=== PATIENT | male | born 1970 | race African-American/Black ===

== ENCOUNTER 2022-04-02 18:15 | Emergency (ER) | payer MEDICAID ==
[~2022-04-02] VITALS: Ht 182.9 cm; Wt 116.6 kg
[2022-04-02 19:13] LABS: Urine Bacteria NONE SEEN /hpf (None Seen); Urine Blood Negative /uL (Negative); Urine Specific Gravity 1.036 (1.001-1.035); Urine WBC 46 /hpf (0 - 3)
[2022-04-02 19:36] LABS: Hemoglobin 13.7 g/dL (13.5-17.5); Mean Corpuscular Hgb Conc. 31.8 g/dL (32.0-36.0)
[2022-04-02 19:38] LABS: Basophils # (auto) 0.1 10 ^3/uL (0-0.2); Basophils % (auto) 1.1 % (0.0-2.0); Eosinophils # (auto) 0.2 10 ^3/uL (0-0.8); Eosinophils % (auto) 2.8 % (0.0-7.0); Hematocrit 43.2 % (41.0-53.0); Lymphocytes # (auto) 1.6 10 ^3/uL (0.4-5.4); Mean Corpuscular Hemoglobin 22.8 pg (28.0-32.0); Mean Corpuscular Volume 71.7 fL (80.0-100.0); Monocytes # (auto) 0.6 10 ^3/uL (0-1.3); Neutrophils # (auto) 3.3 10 ^3/uL (1.6-8.6); Neutrophils % (auto) 58.1 % (37.0-80.0); Nucleated Red Blood Cells % 0.2 %; Red Blood Cells 6.02 10^6/uL (4.5-5.90); White Blood Cell 5.7 10^3/uL (4.4-10.8)
[2022-04-02 19:45] LABS: Albumin 3.5 g/dL (3.4-5.0); BUN/Creatinine Ratio 10.1; Calcium 8.7 mg/dL (8.5-10.1)
[2022-04-02 19:48] LABS: Bilirubin, Total 0.4 mg/dL (0.2-1.0); Total Protein 7.6 g/dL (6.4-8.2)
[2022-04-02] MEDS ORDERED: metFORMIN HYDROCHLORIDE 500 MG TAB PO ONE (20:45)
[2022-04-02] MEDS ORDERED: SODIUM CHLORIDE 0.9% 1,000 ML IV ONE (20:45)
[2022-04-02] MEDS ORDERED: METF500S PO (20:49)
[2022-04-02 22:05] VITALS: BP 126/84
== END 2022-04-02 22:22 | disposition home or self-care (01) ==
LOC: ER 18:18
DX: E11.65 Type 2 diabetes mellitus with hyperglycemia (principal); Z79.84 Long term (current) use of oral hypoglycemic drugs
CPT/HCPCS: 36415; 80053; 81001; 85025; 96360; 99283; J7030